=== PATIENT | female | born 1995 | race Caucasian/White ===

== ENCOUNTER 2019-08-31 18:24 | Emergency (ER) | payer BC ==
--- NOTE | 2019-08-31 19:13 | RAD ---
EXAM: Two views chest PROVIDED CLINICAL HISTORY: Fever and flulike symptoms COMPARISON: None FINDINGS: Cardiac silhouette and pulmonary vasculature are within normal limits. The lungs are clear. The osse ous structures have a normal appearance. IMPRESSION: No acute cardiopulmonary process.
[2019-08-31] MEDS ORDERED: predniSONE 20 MG TAB ONE (19:55)
== END 2019-08-31 20:07 | disposition home or self-care (01) ==
LOC: MADERS 18:24
DX: J06.9 Acute upper respiratory infection, unspecified (principal); Z79.899 Other long term (current) drug therapy
CPT/HCPCS: 71046; 87804; J7512

== ENCOUNTER 2023-04-27 20:18 | Emergency (ER) | payer SELFPAY | END 2023-04-27 20:35 | disposition home or self-care (01) | LOC: MADERS 20:18 | DX: B35.4 Tinea corporis (principal); G40.909 Epilepsy, unspecified, not intractable, without status epilepticus; Z79.899 Other long term (current) drug therapy | CPT/HCPCS: 99282 ==

== ENCOUNTER 2023-05-16 14:57 | Emergency (ER) | payer OTHER, SELFPAY ==
[2023-05-16] MEDS ORDERED: Ibuprofen 600 MG TAB ONE (15:48)
[2023-05-16] MEDS ORDERED: Bacitracin 1 PK ONE (15:48)
== END 2023-05-16 17:20 | disposition home or self-care (01) ==
LOC: MADERS 14:57
DX: S93.412A Sprain of calcaneofibular ligament of left ankle, initial encounter (principal); S93.602A Unspecified sprain of left foot, initial encounter; S80.211A Abrasion, right knee, initial encounter; G40.909 Epilepsy, unspecified, not intractable, without status epilepticus; Z79.899 Other long term (current) drug therapy; W18.39XA Other fall on same level, initial encounter